=== PATIENT | male | born 1965 | race Caucasian/White ===

== ENCOUNTER 2017-03-24 15:30 | Emergency (ER) | payer OTHER ==
[~2017-03-24] VITALS: Ht 172.7 cm; Wt 127.4 kg
[2017-03-24 18:34] VITALS: BP 142/88
== END 2017-03-24 18:39 | disposition home or self-care (01) ==
LOC: EME 15:30
DX: M94.0 Chondrocostal junction syndrome [Tietze] (principal); M79.601 Pain in right arm; R10.9 Unspecified abdominal pain; V49.40XA Driver injured in collision with unspecified motor vehicles in traffic accident, initial encounter; Y92.411 Interstate highway as the place of occurrence of the external cause; E78.5 Hyperlipidemia, unspecified; Z88.8 Allergy status to other drugs, medicaments and biological substances
CPT/HCPCS: 93005; 99281; 99283